=== PATIENT | female | born 1985 | race American Indian/Alaskan Native ===

== ENCOUNTER 2018-09-05 17:49 | Emergency (ER) | payer SELFPAY ==
--- NOTE | 2018-09-05 17:58 | Event Note ---
ED Screening Note Date of service: 09/05/18 Time: 17:57 ED Screening Note: 33 y/o female comes in for dizziness states she has been bleeding for 1 month since 08/08/18. This initial assessment/diagnostic orders/clinical plan/treatment(s) is/are subject to change based on patients health status, clinical progression and re- assessment by fellow clinical providers in the ED. Further treatment and workup at subsequent clinical providers discretion. Patient/guardian urged not to elope from the ED as their condition may be serious if not clinically assessed and managed. Initial orders include:
[2018-09-05 19:06] LABS: Bacteria,Urine 2+ /HPF (Negative); Bilirubin,Urine NEG (Negative); Blood,Urine LG (Negative); Color,Urine Red (Yellow); Urobilinogen,Urine < 2.0 mg/dL (<2.0)
[2018-09-05 19:08] LABS: RBC,Urine > 182.0 /HPF (0.0-6.0)
[2018-09-05 19:13] LABS: Hematocrit 20.1 % (30.3-42.9); Hemoglobin 6.2 gm/dl (10.1-14.3); Mean Corpuscular HGB Conc 31 % (30-34); Mean Corpuscular Volume 70 fl (79-97); Platelet Count 326 K/mm3 (140-440); Red Blood Count 2.89 M/mm3 (3.65-5.03)
[2018-09-05 19:23] LABS: Alanine Aminotransferase 16 units/L (7-56); Albumin 3.8 g/dL (3.9-5); BUN/Creatinine Ratio 8; Blood Urea Nitrogen 5 mg/dL (7-17); Calcium 8.6 mg/dL (8.4-10.2); Hemolysis Index 7
[2018-09-05 19:37] LABS: Total Cells Counted 100
[2018-09-05 19:38] LABS: Anisocytosis 2+
[2018-09-05 19:39] LABS: Hypochromasia 1+; Poikilocytosis Few
[2018-09-05] MEDS ORDERED: NACL 0.9% 1000 ML 1,000 ML IV ONE (21:49)
[2018-09-05] MEDS ORDERED: TORADOL IV ONE (21:49)
[2018-09-05] MEDS ORDERED: NACL 0.9% 500 ML 500 ML IV ONE ×2 (21:49→23:08)
--- NOTE | 2018-09-05 21:51 | Emergency Department Report ---
ED Female HPI - General Chief complaint: Dizziness Stated complaint: DIZZINESS/BLURRED VISION Time Seen by Provider: 09/05/18 21:28 Source: patient, RN notes reviewed Mode of arrival: Ambulatory Limitations: No Limitations - History of Present Illness Initial comments: This is a pleasant 33-year-old female. This patient is not known to this provider previously. She is going to follow up with [facility] obstetrics later on this week. She has a history of prolonged vaginal bleeding. 3 months ago, she was on Megestrol She presents to the ER today with complaint of crampy vaginal bleeding for 3 days. Today, she has gone through half a box of pads. She endorses weakness, lightheadedness, shortness of breath, and resolved binocular blurry vision. She has chronic headaches, no chest pain, positive shortness of breath, positive lower abdominal pain, no urinary symptoms. Symptoms are constant, worse with physical exertion and decreased with rest. She denies rectal pain, and rectal bleeding. MD Complaint: vaginal bleeding, pelvic pain -: Gradual, week(s) Location: suprapubic Severity: moderate Quality: cramping Consistency: constant Improves with: other Worsens with: other Are you Now?: No - Related Data Previous Rx's Medication Instructions Recorded Last Taken Type Ferrous Sulfate [Ferrous Sulfate 324 mg PO TID #90 tablet. 09/06/18 Unknown Rx 324 MG] Allergies Allergy/AdvReac Type Severity Reaction Status Date / Time No Known Allergies Allergy Verified 09/05/18 17:52 ED Review of Systems ROS: Stated complaint: DIZZINESS/BLURRED VISION Other details as noted in HPI Constitutional: denies: fever, malaise Eyes: denies: eye discharge ENT: denies: epistaxis Respiratory: shortness of breath. denies: cough Cardiovascular: denies: chest pain Gastrointestinal: abdominal pain Genitourinary: abnormal menses Musculoskeletal: denies: back pain Skin: denies: lesions Neurological: weakness Psychiatric: anxiety ED Past Medical Hx - Past Medical History Previous Medical History?: No - Surgical History Past Surgical History?: No - Social History Smoking Status: Current Every Day Smoker Substance Use Type: None - Medications Home Medications: Home Medications Medication Instructions Recorded Confirmed Last Taken Type Ferrous Sulfate [Ferrous Sulfate 324 mg PO TID #90 tablet. 09/06/18 Unknown Rx 324 MG] ED Physical Exam - General Limitations: No Limitations General appearance: alert, in no apparent distress - Head Head exam: Present: atraumatic, normocephalic - Eye Eye exam: Present: normal appearance, EOMI. Absent: nystagmus - ENT ENT exam: Present: normal exam, normal orophraynx, mucous membranes moist, normal external ear exam - Neck Neck exam: Present: normal inspection, full ROM. Absent: tenderness, meningismus - Respiratory Respiratory exam: Present: normal lung sounds bilaterally. Absent: respiratory distress - Cardiovascular Cardiovascular Exam: Present: regular rate, normal rhythm, normal heart sounds. Absent: bradycardia, tachycardia, irregular rhythm, systolic murmur, diastolic murmur, rubs, gallop - GI/Abdominal GI/Abdominal exam: Present: soft. Absent: distended, tenderness, guarding, rebound, rigid, pulsatile mass - External exam: Present: normal external exam. Absent: erythema, swelling, lesions, lacerations, ecchymosis, bleeding Speculum exam: Present: vaginal bleeding, other (minimal vaginal bleeding noted. Chaperoned by nurse SHAN LOPEZ) - Extremities Exam Extremities exam: Present: normal inspection, full ROM, other (2+ pulses noted in the bilateral upper, lower extremities. Compartments soft. No long bony tenderness. The pelvis is stable.). Absent: pedal edema, joint swelling, calf tenderness - Back Exam Back exam: Present: normal inspection, full ROM. Absent: tenderness, CVA tenderness (R), CVA tenderness (L), paraspinal tenderness, vertebral tenderness - Neurological Exam Neurological exam: Present: alert, normal gait, other (Extraocular movements intact. Tongue midline. No facial droop. Facial sensation intact to light t ouch in the V1, V2, V3 distribution bilaterally. 5 and 5 strength in 4 extremities.. Sensation is intact to light touch in 4 extremities.). Absent: motor sensory deficit - Psychiatric Psychiatric exam: Present: normal affect, normal mood - Skin Skin exam: Present: warm, dry, intact, normal color. Absent: rash ED Course Vital Signs 09/05/18 09/05/18 09/05/18 17:54 21:42 22:00 Temperature 97.9 F 98.4 F Pulse Rate 112 H 88 Respiratory 18 19 Rate Blood Pressure 115/60 110/74 Blood Pressure 108/66 [Left] O2 Sat by Pulse 99 100 100 Oximetry 07/09/05/18 09/06/18 22:30 23:00 00:28 Temperature 98.3 F Pulse Rate 83 88 90 Respiratory 26 H 13 17 Rate Blood Pressure 117/57 97/55 112/73 Blood Pressure [Left] O2 Sat by Pulse 100 100 100 Oximetry 09/06/18 09/06/18 09/06/18 00:43 01:13 01:43 Temperature 98.3 F 98.3 F 98.3 F Pulse Rate 85 88 85 Respiratory 19 14 15 Rate Blood Pressure 102/66 97/57 95/65 Blood Pressure [Left] O2 Sat by Pulse 100 100 100 Oximetry 09/06/18 09/06/18 09/06/18 02:13 02:24 02:39 Temperature 98.4 F 98.4 F 98.4 F Pulse Rate 100 H 105 H 90 Respiratory 18 20 21 Rate Blood Pressure 99/65 111/75 117/72 Blood Pressure [Left] O2 Sat by Pulse 100 100 100 Oximetry 09/06/18 09/06/18 09/06/18 03:09 03:10 03:39 Temperature 98.4 F 98.4 F 98.4 F Pulse Rate 85 85 87 Respiratory 18 18 19 Rate Blood Pressure 97/57 97/57 102/64 Blood Pressure [Left] O2 Sat by Pulse 100 100 100 Oximetry 09/06/18 09/06/18 04:09 04:28 Temperature 98.4 F 98.4 F Pulse Rate 88 88 Respiratory 20 20 Rate Blood Pressure 104/63 104/63 Blood Pressure [Left] O2 Sat by Pulse 100 100 Oximetry - Reevaluation(s) Reevaluation #1: 09/05/18 22:57 Differential diagnosis, including but not limited to: Dysfunctional uterine bleeding, fibroids, symptomatic anemia Assessment and plan: 33-year-old female with complaint of weeks of crampy vaginal bleeding. Her tachycardia has resolved, and she currently has afebrile vital signs with reassuring vital signs. Laboratory studies have confirmed anemia. She is not . She is amenable to packed red blood cell transfusion. Gynecologic ultrasound ordered and pending. Contacted gynecology on-call, Dr. Gordillo, who agrees with the aforementioned, and also recommends Provera, 10 mg daily. Given young age, normalization of vital signs, close outpatient follow-up, duration of symptoms, patient in my opinion is suitable for a trial of outpatient management. Reevaluation #2: 09/06/18 02:49 Gynecologic examination unremarkable. Patient eating fast food. Ultrasound reviewed and appreciated. Patient states that she currently smokes cigarettes. Therefore, we will not prescribe Provera. Second unit of packed red blood cells is transfusing. She appears to be quite comfortable. ED Medical Decision Making - Lab Data Result diagrams: 09/05/18 17:58 09/05/18 17:58 Vital Signs 09/05/18 09/05/18 17:54 21:42 Temperature 97.9 F 98.4 F Pulse Rate 112 H 88 Respiratory 18 19 Rate Blood Pressure 115/60 Blood Pressure 108/66 [Left] O2 Sat by Pulse 99 100 Oximetry Lab Results 09/05/18 09/05/18 09/05/18 Range/Units 17:58 17:58 17:58 WBC 10.0 (4.5-11.0) K/mm3 RBC 2.89 L (3.65-5.03) M/mm3 Hgb 6.2 L (10.1-14.3) gm/dl Hct 20.1 L (30.3-42.9) % MCV 70 L (79-97) fl MCH 22 L (28-32) pg MCHC 31 (30-34) % RDW 25.0 H (13.2-15.2) % Plt Count 326 (140-440) K/mm3 Add Manual Diff Complete Total Counted 100 Seg Neuts % (Manual) 78.0 H (40.0-70.0) % Band Neutrophils % 0 % Lymphocytes % (Manual) 11.0 L (13.4-35.0) % Reactive Lymphs % (Man) 0 % Monocytes % (Manual) 5.0 (0.0-7.3) % Eosinophils % (Manual) 5.0 H (0.0-4.3) % Basophils % (Manual) 1.0 (0.0-1.8) % Metamyelocytes % 0 % Myelocytes % 0 % Promyelocytes % 0 % Blast Cells % 0 % Nucleated RBC % Not Reportable Seg Neutrophils # Man 7.8 H (1.8-7.7) K/mm3 Band Neutrophils # 0.0 K/mm3 Lymphocytes # (Manual) 1.1 L (1.2-5.4) K/mm3 Abs React Lymphs (Man) 0.0 K/mm3 Monocytes # (Manual) 0.5 (0.0-0.8) K/mm3 Eosinophils # (Manual) 0.5 H (0.0-0.4) K/mm3 Basophils # (Manual) 0.1 (0.0-0.1) K/mm3 Metamyelocytes # 0.0 K/mm3 Myelocytes # 0.0 K/mm3 Promyelocytes # 0.0 K/mm3 Blast Cells # 0.0 K/mm3 WBC Morphology Not Reportable Hypersegmented Neuts Not Reportable Hyposegmented Neuts Not Reportable Hypogranular Neuts Not Reportable Smudge Cells Not Reportable Toxic Granulation Not Reportable Toxic Vacuolation Not Reportable Dohle Bodies Not Reportable Pelger-Huet Anomaly Not Reportable Eduardo Rods Not Reportable Platelet Estimate Appears normal Clumped Platelets Not Reportable Plt Clumps, EDTA Not Reportable Large Platelets Not Reportable Giant Platelets Not Reportable Platelet Satelliting Not Reportable Plt Morphology Comment Not Reportable RBC Morphology Not Reportable Dimorphic RBCs Not Reportable Polychromasia Not Reportable Hypochromasia 1+ Poikilocytosis Few Anisocytosis 2+ Microcytosis 1+ Macrocytosis Not Reportable Spherocytes Not Reportable Pappenheimer Bodies Not Reportable Sickle Cells Not Reportable Target Cells Not Reportable Tear Drop Cells Not Reportable Ovalocytes Not Reportable Helmet Cells Not Reportable Aguilar-[place] Bodies Not Reportable [place] Rings Not Reportable Tristian Cells Not Reportable Bite Cells Not Reportable Crenated Cell Not Reportable Elliptocytes Not Reportable Acanthocytes (Spur) Not Reportable Rouleaux Not Reportable Hemoglobin C Crystals Not Reportable Schistocytes Not Reportable Malaria parasites Not Reportable Sergio Bodies Not Reportable Hem Pathologist Commnt No Sodium 137 (137-145) mmol/L Potassium 4.1 (3.6-5.0) mmol/L Chloride 102.0 (98-107) mmol/L Carbon Dioxide 23 (22-30) mmol/L Anion Gap 16 mmol/L BUN 5 L (7-17) mg/dL Creatinine 0.6 L (0.7-1.2) mg/dL Estimated GFR > 60 ml/min BUN/Creatinine Ratio 8 % Glucose 98 (65-100) mg/dL Calcium 8.6 (8.4-10.2) mg/dL Total Bilirubin 0.30 (0.1-1.2) mg/dL AST 26 (5-40) units/L ALT 16 (7-56) units/L Alkaline Phosphatase 137 H (35-129) units/L Total Protein 7.1 (6.3-8.2) g/dL Albumin 3.8 L (3.9-5) g/dL Albumin/Globulin Ratio 1.2 % HCG, Quant < 2 (0-4) mIU/mL Urine Color (Yellow) Urine Turbidity (Clear) Urine pH (5.0-7.0) Ur Specific [place] (1.003-1.030) Urine Protein (Negative) mg/dL Urine Glucose (UA) (Negative) mg/dL Urine Ketones (Negative) mg/dL Urine Blood (Negative) Urine Nitrite (Negative) Urine Bilirubin (Negative) Urine Urobilinogen (<2.0) mg/dL Ur Leukocyte Esterase (Negative) Urine WBC (Auto) (0.0-6.0) /HPF Urine RBC (Auto) (0.0-6.0) /HPF U Epithel Cells (Auto) (0-13.0) /HPF Urine Bacteria (Auto) (Negative) /HPF Blood Type Antibody Screen 09/05/18 09/05/18 Range/Units 17:58 18:17 WBC (4.5-11.0) K/mm3 RBC (3.65-5.03) M/mm3 Hgb (10.1-14.3) gm/dl Hct (30.3-42.9) % MCV (79-97) fl MCH (28-32) pg MCHC (30-34) % RDW (13.2-15.2) % Plt Count (140-440) K/mm3 Add Manual Diff Total Counted Seg Neuts % (Manual) (40.0-70.0) % Band Neutrophils % % Lymphocytes % (Manual) (13.4-35.0) % Reactive Lymphs % (Man) % Monocytes % (Manual) (0.0-7.3) % Eosinophils % (Manual) (0.0-4.3) % Basophils % (Manual) (0.0-1.8) % Metamyelocytes % % Myelocytes % % Promyelocytes % % Blast Cells % % Nucleated RBC % Seg Neutrophils # Man (1.8-7.7) K/mm3 Band Neutrophils # K/mm3 Lymphocytes # (Manual) (1.2-5.4) K/mm3 Abs React Lymphs (Man) K/mm3 Monocytes # (Manual) (0.0-0.8) K/mm3 Eosinophils # (Manual) (0.0-0.4) K/mm3 Basophils # (Manual) (0.0-0.1) K/mm3 Metamyelocytes # K/mm3 Myelocytes # K/mm3 Promyelocytes # K/mm3 Blast Cells # K/mm3 WBC Morphology Hypersegmented Neuts Hyposegmented Neuts Hypogranular Neuts Smudge Cells Toxic Granulation Toxic Vacuolation Dohle Bodies Pelger-Huet Anomaly Eduardo Rods Platelet Estimate Clumped Platelets Plt Clumps, EDTA Large Platelets Giant Platelets Platelet Satelliting Plt Morphology Comment RBC Morphology Dimorphic RBCs Polychromasia Hypochromasia Poikilocytosis Anisocytosis Microcytosis Macrocytosis Spherocytes Pappenheimer Bodies Sickle Cells Target Cells Tear Drop Cells Ovalocytes Helmet Cells Aguilar-[place] Bodies [place] Rings Tristian Cells Bite Cells Crenated Cell Elliptocytes Acanthocytes (Spur) Rouleaux Hemoglobin C Crystals Schistocytes Malaria parasites Sergio Bodies Hem Pathologist Commnt Sodium (137-145) mmol/L Potassium (3.6-5.0) mmol/L Chloride (98-107) mmol/L Carbon Dioxide (22-30) mmol/L Anion Gap mmol/L BUN (7-17) mg/dL Creatinine (0.7-1.2) mg/dL Estimated GFR ml/min BUN/Creatinine Ratio % Glucose (65-100) mg/dL Calcium (8.4-10.2) mg/dL Total Bilirubin (0.1-1.2) mg/dL AST (5-40) units/L ALT (7-56) units/L Alkaline Phosphatase (35-129) units/L Total Protein (6.3-8.2) g/dL Albumin (3.9-5) g/dL Albumin/Globulin Ratio % HCG, Quant (0-4) mIU/mL Urine Color Red (Yellow) Urine Turbidity Clear (Clear) Urine pH 6.0 (5.0-7.0) Ur Specific [place] 1.005 (1.003-1.030) Urine Protein 100 mg/dl (Negative) mg/dL Urine Glucose (UA) Neg (Negative) mg/dL Urine Ketones Neg (Negative) mg/dL Urine Blood Lg (Negative) Urine Nitrite Neg (Negative) Urine Bilirubin Neg (Negative) Urine Urobilinogen < 2.0 (<2.0) mg/dL Ur Leukocyte Esterase Tr (Negative) Urine WBC (Auto) 8.0 H (0.0-6.0) /HPF Urine RBC (Auto) > 182.0 (0.0-6.0) /HPF U Epithel Cells (Auto) 1.0 (0-13.0) /HPF Urine Bacteria (Auto) 2+ (Negative) /HPF Blood Type O POSITIVE Antibody Screen Negative - EKG Data -: EKG Interpreted by Ct EKG shows normal: sinus rhythm Rate: normal - EKG Data When compared to previous EKG there are: previous EKG unavailable 09/05/18 22:59 This is a sinus rhythm, 85 bpm, normal axis, normal intervals, low voltage in the inferior leads, the EKG is not consistent with ST elevation myocardial infarction. There is no prior for comparison. - Radiology Data Radiology results: pending, report reviewed, image reviewed Print Report Referring Physician: ISABEL EMANUEL Patient Name: KISHA LAUREANO Date of : 1985 Sex: Female Report Date: 2018-09-06 Report Status: Finalized Findings [facility] [address] [place] [address] Ultrasound Report Signed Patient: KISHA LAUREANO MR#: [id number] : 1985 Acct:[id number] Age/Sex: 33 / F ADM Date: 09/05/18 Loc: ED Attending Dr: Ordering Physician: ISABEL EMANUEL MD Date of Service: 09/05/18 Procedure(s): US transvaginal Accession Number(s): [id number] cc: ISABEL EMANUEL MD ULTRASOUND PELVIS INDICATION: Pelvic pain with vaginal bleeding. TECHNIQUE: Transabdominal and Transvaginal. Duplex Color Doppler used: Yes. COMPARISON: None available FINDINGS: Uterus: Present. Size: 10.3 x 5.6 x 5.7 cm. Endometrial complex: Thickened measuring 2.4 cm. Mass lesions: None. Additional findings: None. Right Ovary: Size: 3.7 x 2.2 x 2.6 cm Blood flow: Normal. Cyst or mass: There is a complex cystic structure along the right adnexa measuring 4.8 x 3.1 x 2.7 cm. No solid lesions are identified. Left Ovary: Size: 2.7 x 1.5 cm Blood flow: Normal. Cyst or mass: None. Urinary Bladder: Normal. Free Fluid: Minimal. Additional Findings: None. IMPRESSION: 1. Nonspecific thickening of the endometrial complex without a distinct mass. 2. Complex right adnexal cystic structure with a possibly dilated right fallopian tube. A follow-up pelvic ultrasound in 6 weeks is recommended. Signer Name: Roosevelt Wolf MD Signed: 09/06/2018 12:19 AM Workstation Name: [id number] Transcribed By: ELINA Dictated By: Roosevelt Wolf MD Electronically Authenticated By: Roosevelt Wolf MD Signed Date/Time: 09/06/18 0019 Critical Care Time: Yes Critical care time in (mins) excluding proc time.: 35 Critical care attestation.: If time is entered above; I have spent that time in minutes in the direct care of this critically ill patient, excluding procedure time. ED Disposition Clinical Impression: Vaginal bleeding Anemia Qualifiers: Anemia type: iron deficiency Iron deficiency anemia type: chronic blood loss Qualified Code(s): D50.0 - Iron deficiency anemia secondary to blood loss (chronic) Disposition: DC-01 TO HOME OR SELFCARE Is pt being admited?: No Does the pt Need Aspirin: No Condition: Stable Instructions: Dysfunctional Uterine Bleeding (ED) Additional Instructions: Stop smoking cigarettes. Take the medications as needed/directed. Follow up within the next week with an [facility]ING OPERATOR physician. Ultrasound today demonstrated nonspecific findings which need to be followed up by an C[facility] WINDING OPERATOR physician within the next 4 weeks. Return to the emergency room right away with new, worsening or different symptoms not present on the initial emergency room evaluation. Drinks 4-6 cups of water per day. The iron sulfate medication may cause constipation, and may change the color of bowel movements to black. if The patient elects to start control tablets, such as Provera, she will need to stop smoking cigarettes, as these medications may increase to lifetime risk for blood clot in the legs and lungs, which may be fatal. Prescriptions: Ferrous Sulfate [Ferrous Sulfate 324 MG] 324 mg PO TID #90 tablet. Referrals: LINDA GORDILLO MD [Staff Physician] - 3-5 Days [facility] [Provider Group] - 3-5 Days
--- NOTE | 2018-09-06 00:24 | Ultrasound Report ---
ULTRASOUND PELVIS INDICATION: Pelvic pain with vaginal bleeding. TECHNIQUE: Transabdominal and Transvaginal. Duplex Color Doppler used: Yes. COMPARISON: None available FINDINGS: Uterus: Present. Size: 10.3 x 5.6 x 5.7 cm. Endometrial complex: Thickened measuring 2.4 cm. Mass lesions: None. Additional findings: None. Right Ovary: Size: 3.7 x 2.2 x 2.6 cm Blood flow: Normal. Cyst or mass: There is a complex cystic structure along the right adnexa measuring 4.8 x 3.1 x 2.7 cm . No solid lesions are identified. Left Ovary: Size: 2.7 x 1.5 cm Blood flow: Normal. Cyst or mass: None. Urinary Bladder: Normal. Free Fluid: Minimal. Additional Findings: None. IMPRESSION: 1. Nonspecific thickening of the endometrial complex without a distinct mass. 2. Complex right adnexal cystic structure with a possibly dilated right fallopian tube. A follow-up p elvic ultrasound in 6 weeks is recommended. Signer Name: Roosevelt Wolf MD Signed: 09/06/2018 12:19 AM Workstation Name: [id number]
[2018-09-06] MEDS ORDERED: ATARAX PO ONE (02:30)
[2018-09-06 04:27] VITALS: BP 104/63
== END 2018-09-06 04:30 | disposition home or self-care (01) ==
LOC: ED 17:49
DX: D50.0 Iron deficiency anemia secondary to blood loss (chronic) (principal); N93.9 Abnormal uterine and vaginal bleeding, unspecified
CPT/HCPCS: 36415; 36430; 76830; 80053; 81001; 84702; 85007; 85025; 86850; 86900; 86901; 86920; 93005; 93010; 93975; 96361; 96374; 99284; J1885; J7030; J7040; P9016

== ENCOUNTER 2019-04-30 10:45 | Emergency (ER) | payer SELFPAY ==
[2019-04-30 10:51] VITALS: BP 129/65
[2019-04-30] MEDS ORDERED: KETOROLAC 10 MG TAB PO ONE (13:47)
--- NOTE | 2019-04-30 13:47 | Emergency Department Report ---
ED Lower Extremity HPI - General Chief Complaint: Extremity Injury, Lower Stated Complaint: RT KNEE SWELLING Time Seen by Provider: 04/30/19 13:42 Source: patient Mode of arrival: Ambulatory Limitations: No Limitations - History of Present Illness Initial Comments: 34-year-old female presenting with chief complaint of left knee pain onset on Monday after she slipped on water and fell. She states that she has had intermittent swelling as well as persistent pain since that time. Describes this as moderate to severe. She is able to ambulate. No numbness or weakness. No other injuries. Worse with ambulation/movement, better with rest. MD Complaint: knee injury Associated Symptoms: swelling - Related Data Previous Rx's Medication Instructions Recorded Last Taken Type Ferrous Sulfate [Ferrous Sulfate 324 mg PO TID #90 tablet. 09/06/18 Unknown Rx 324 MG] Naproxen [EC-Naprosyn] 500 mg PO BID #20 tablet. 04/30/19 Unknown Rx Allergies Allergy/AdvReac Type Severity Reaction Status Date / Time No Known Allergies Allergy Verified 09/05/18 17:52 ED Review of Systems ROS: Stated complaint: RT KNEE SWELLING Other details as noted in HPI Comment: All other systems reviewed and negative Musculoskeletal: as per HPI ED Past Medical Hx - Past Medical History Previous Medical History?: No - Surgical History Past Surgical History?: No - Social History Smoking Status: Current Every Day Smoker Substance Use Type: None - Medications Home Medications: Home Medications Medication Instructions Recorded Confirmed Last Taken Type Ferrous Sulfate [Ferrous Sulfate 324 mg PO TID #90 tablet. 09/06/18 Unknown Rx 324 MG] Naproxen [EC-Naprosyn] 500 mg PO BID #20 tablet. 04/30/19 Unknown Rx ED Physical Exam - General Limitations: No Limitations General appearance: alert, in no apparent distress - Head Head exam: Present: atraumatic, normocephalic - Neck Neck exam: Present: normal inspection, full ROM. Absent: tenderness - Extremities Exam Extremities exam: Present: other (Mild swelling noted to the left knee with diffuse tenderness distal pulses normal, normal ankle and hip exam) - Neurological Exam Neurological exam: Present: alert, oriented X3 - Psychiatric Psychiatric exam: Present: normal affect, normal mood - Skin Skin exam: Present: warm, dry, intact ED Course Vital Signs 04/30/19 10:47 Temperature 97.5 F L Pulse Rate 106 H Respiratory 18 Rate Blood Pressure 129/65 O2 Sat by Pulse 100 Oximetry ED Lower Extremity MDM - Radiology Data Negative knee series - Medical Decision Making Patient presenting with knee injury. No mechanism to suggest dislocation/relocation. Differentials include sprain, fracture, contusion. On exam there is some mild swelling to the left knee but exam is otherwise unremarkable. Neurovascular status intact. X-ray without any bony abnormality. Advise outpatient orthopedic follow-up. - Differential Diagnosis Sprain, contusion, fracture Critical care attestation.: If time is entered above; I have spent that time in minutes in the direct care of this critically ill patient, excluding procedure time. ED Disposition Clinical Impression: Knee pain Qualifiers: Chronicity: acute Laterality: left Qualified Code(s): M25.562 - Pain in left knee Disposition: TO HOME OR SELFCARE Is pt being admited?: No Condition: Good Instructions: Arthralgia (ED) Prescriptions: Naproxen [EC-Naprosyn] 500 mg PO BID #20 tablet. Referrals: DONNA LUNDY MD [Primary Care Provider] - 3-5 Days CORINA PELLETIER MD [Staff Physician] - 3-5 Days Time of Disposition: 14:46
--- NOTE | 2019-04-30 14:13 | XRay Report ---
LEFT KNEE HISTORY: Fall and pain. COMPARISON: None. TECHNIQUE: 3 views of the left knee obtained. FINDINGS: Bones: No fracture or dislocation. Mild osteopenia. Joint spaces: Maintained. Soft tissues: No significant abnormality. Additional findings: No joint effusion. IMPRESSION: 1. No significant abnormality. Signer Name: Russell Lyn MD Signed: 04/30/2019 2:09 PM Workstation Name: [id number]
== END 2019-04-30 14:52 | disposition home or self-care (01) ==
LOC: ED 10:45
DX: M25.562 Pain in left knee (principal); F17.200 Nicotine dependence, unspecified, uncomplicated; Z79.899 Other long term (current) drug therapy; W01.0XXA Fall on same level from slipping, tripping and stumbling without subsequent striking against object, initial encounter; Y93.89 Activity, other specified; Y92.89 Other specified places as the place of occurrence of the external cause; Y99.8 Other external cause status
CPT/HCPCS: 99283

== ENCOUNTER 2021-09-08 13:23 | Emergency (ER) | payer OTHER ==
--- NOTE | 2021-09-08 17:24 | Emergency Department Report ---
Upper Extremity - [facility] Chief Complaint: Extremity Problem,Nontraumatic Stated Complaint: INJ ARM/HERNIA Upper Extremity: Right Shoulder Occurred When: >5 Days Severity: mild Symptoms: Yes Pain with Movement, No Deformity, No Limited Range of Movement, No Numbness, No Weakness, No Swelling, No Bruising/Ecchymosis, No Laceration or Abrasion Other History: 36-year-old female presents the ED complaining of right shoulder pain and possible hernia. Patient states that right shoulder and lower abdominal pain after heavy lifting at work. Patient states that she has been t aking [id number] medication without any relief. States she quit her job due to heavy lifting and came to the ED today to be evaluated to make sure that she did not pulled a muscle. Patient has no obvious deformity no distracting injury noted. She is able to move right shoulder without any difficulty. No acute distress noted. No ill appearance noted. ED Review of Systems ROS: Stated complaint: INJ ARM/HERNIA Other details as noted in HPI Constitutional: denies: chills, fever Eyes: denies: eye pain, eye discharge, vision change ENT: denies: ear pain, throat pain Respiratory: denies: cough, shortness of breath, wheezing Cardiovascular: denies: chest pain, palpitations Endocrine: no symptoms reported Gastrointestinal: denies: abdominal pain, nausea, diarrhea Genitourinary: denies: urgency, dysuria, discharge Musculoskeletal: denies: back pain, joint swelling, arthralgia Skin: denies: rash, lesions Neurological: denies: headache, weakness, paresthesias Psychiatric: denies: anxiety, depression Hematological/Lymphatic: denies: easy bleeding, easy bruising ED Past Medical Hx - Social History Smoking Status: Current Every Day Smoker Substance Use Type: None - Medications Home Medications: Home Medications Medication Instructions Recorded Confirmed Last Taken Type Ferrous Sulfate [Ferrous Sulfate 324 mg PO TID #90 tablet. 09/06/18 Unknown Rx 324 MG] Naproxen [EC-Naprosyn] 500 mg PO BID #20 tablet. 04/30/19 Unknown Rx Cyclobenzaprine [Flexeril] 10 mg PO TID PRN 15 Days #30 tab 09/08/21 Unknown Rx Ketorolac [Toradol] 10 mg PO Q6H PRN 5 Days #20 tab 09/08/21 Unknown Rx Upper Extremity Exam - Exam General: Vital signs noted. No distress. Alert and acting appropriately. Head and Torso: No HEENT Abnormality, No Neck Tenderness, No Chest/Lungs Abnormality, No Abdominal Tenderness, No Back Tenderness Shoulder Exam: Yes Normal Range of Motion in Shoulder, No Shoulder Tenderness, No Clavicle Tenderness, No Shoulder Deformity, No AC Joint Tenderness Arm Exam: No Arm/Humerus Tenderness, No Arm Deformity Elbow: No Elbow Tenderness, No Normal Range of Motion in Elbow, No Elbow De formity Forearm: No Forearm Tenderness, No Forearm Deformity, No Pain with Pronation, No Pain with Supination Wrist: Yes Normal ROM in Wrist, No Wrist Tenderness, No Wrist Deformity, No Snuffbox Tenderness, No Pain with Axial Thumb Compression Hand: Yes Normal ROM in Digit(s), No Hand Tenderness, No Hand Deformity, No Digit Tenderness, No Digit(s) Deformity, No Tendon Dysfunction CMS Exam: No Broken Skin, No Normal Distal Pulses, No Normal Capillary Refill, No Normal Distal Sensation ED Course Vital Signs 09/08/21 13:57 Temperature 98.8 F Pulse Rate 98 H Respiratory 18 Rate Blood Pressure 115/87 [Left] O2 Sat by Pulse 100 Oximetry ED Medical Decision Making - Medical Decision Making 36-year-old female presents the ED complaining of right shoulder pain and possible hernia. Patient states that right shoulder and lower abdominal pain after heavy lifting at work. Patient states that she has been taking [id number] medication without any relief. States she quit her job due to heavy lifting and came to the ED today to be evaluated to make sure that she did not pulled a muscle. Patient has no obvious deformity no distracting injury noted. She is able to move right shoulder without any difficulty. No acute distress noted. No ill appearance noted. Physical examination is unremarkable Rechecked the patient is resting quietly , comfortable and feeling better. I discussed the results of diagnostic study, my clinical impression and the plan for further treatment with the patient. Patient agrees with plan and discharge at this present time. All question addressed. I have given the patient instruction regarding a diagnosis ,expectation ,follow- up and return precaution. I explained to the patient that emergent condition may arise and to return to the ED for new worsen and any new persisting condition. I have explained the importance of following up with the primary care physician or referral physician listed below has instructed. The patient verbalized understanding of discharge instruction. Critical care attestation.: If time is entered above; I have spent that time in minutes in the direct care of this critically ill patient, excluding procedure time. ED Disposition Clinical Impression: Right shoulder pain Qualifiers: Chronicity: acute Qualified Code(s): M25.511 - Pain in right shoulder Disposition: HOME / SELF CARE / HOMELESS Is pt being admited?: No Does the pt Need Aspirin: No Condition: Stable Instructions: Shoulder Pain, Shoulder Pain, [id number], Musculoskeletal Pain Additional Instructions: Take medication as prescribed Return to ED for any worsening symptom Prescriptions: Cyclobenzaprine [Flexeril] 10 mg PO TID PRN 15 Days #30 tab PRN Reason: Muscle Spasm Ketorolac [Toradol] 10 mg PO Q6H PRN 5 Days #20 tab PRN Reason: Pain Referrals: [facility] [Provider Group] - 3-5 Days Forms: Work/School Release Form(ED) Time of Disposition: 17:26
[2021-09-08 18:52] VITALS: BP 120/91
== END 2021-09-08 18:50 | disposition home or self-care (01) ==
LOC: ED 13:23
DX: M25.511 Pain in right shoulder (principal)
CPT/HCPCS: 99282